=== PATIENT | female | born 1960 | race Caucasian/White ===

== ENCOUNTER 2023-10-17 14:46 | Outpatient (REF) | payer OTHER, SELFPAY ==
--- NOTE | ~2023-10-17 | US_ITS ---
EXAMINATION: US VENOUS WITH DOPPLER UPPER EXTREMITY, RIGHT CLINICAL INFORMATION: Right upper extremity swelling COMPARISON: None available. TECHNIQUE: Ultrasound of the upper extremity is performed using compression sonography and color and pulse Doppler flow with assessment of augmentation of flow. There is also imaging and Doppler assessment of the jugular and subclavian veins. Spectral analysis with color-flow imaging is performed. FINDINGS: Respiratory variation and normal compression are noted throughout the upper extremity including the axillary, basilic, brachial, cephalic and radial and ulnar veins. There is normal flow in the internal jugular and subclavian veins. US/US venous duplex UE RT IMPRESSION: No DVT demonstrated in the right upper extremity
[2023-10-17 15:39] LABS: MANUAL DIFF FLAG NO
[2023-10-17 16:14] LABS: Basophils Absolute Auto 0.1 X10*3/uL (0.0-0.2); Basophils Percent Auto 0.4 % (0-2); Eosinophils Absolute Auto 0.2 X10*3/uL (0.0-0.4); Eosinophils Percent Auto 1.1 % (0-4); Hemoglobin 13.8 g/dl (12.0-16.0); Imm Gran Abs Auto 0.09 X10*3/uL (0.00-0.03); Imm Gran Pct Auto 0.6 % (0.0-0.4); Lymphocytes Absolute Auto 3.3 X10*3/uL (1.2-4.9); Lymphocytes Percent Auto 23.3 % (20-40); Mean Corpuscular HGB Conc 32.1 g/dl (31.0-35.0); Mean Corpuscular Hemoglobin 29.1 pg (27.0-33.0); Mean Corpuscular Volume 90.5 fL (80.0-98.0); Mean Platelet Volume 10.2 fL (9.4-12.3); Monocytes Absolute Auto 0.8 X10*3/uL (0.1-1.2); Monocytes Percent Auto 5.7 % (2-11); Neutrophils Absolute Auto 9.7 x10*3/uL (2.0-8.3); Neutrophils Percent Auto 68.9 % (45-73); Platelet Count 413 X10*3/uL (160-400); Red Blood Count 4.75 X10*6/uL (4.20-5.50); Red Cell Distribution Width 12.5 % (11.0-16.0); White Blood Count 14.1 X10*3/uL (4.8-10.8)
[2023-10-17 16:35] LABS: Alanine Aminotransferase 17 U/L (0-31); Albumin Level 3.7 g/dL (3.5-5.0); Alkaline Phosphatase 132 U/L (39-117); Anion Gap 20 (12-20); Aspartate Amino Transferase 17 U/L (5-31); Bilirubin Total 0.3 mg/dL (0.0-1.0); Blood Urea Nitrogen 26 mg/dL (9-16); Carbon Dioxide 21 mmol/L (22-29); Chloride 102 mmol/L (96-108); Estimated Glomerular Filt Rate 33; Glucose Random 191 mg/dL (60-115); Potassium 4.7 mmol/L (3.3-5.1); Sodium 138 mmol/L (135-145); Total Protein 8.2 g/dL (6.5-8.0)
[2023-10-17 16:59] LABS: D Dimer High Sensitivity 541 NG/ML
== END 2023-10-17 14:47 | disposition home or self-care (01) ==
LOC: HO.US 14:46
PROVIDERS: Visit Provider Internal Medicine Medical Oncology
DX: I82.409 Acute embolism and thrombosis of unspecified deep veins of unspecified lower extremity (principal); I10 Essential (primary) hypertension; E66.01 Morbid (severe) obesity due to excess calories; E11.9 Type 2 diabetes mellitus without complications
CPT/HCPCS: 36415; 80053; 85025; 85379; 93971

== ENCOUNTER 2024-01-12 14:42 | Outpatient (REF) | payer OTHER, SELFPAY | END 2024-01-12 14:43 | disposition home or self-care (01) | LOC: HO.LNP 14:42 | PROVIDERS: Visit Provider Internal Medicine Medical Oncology | DX: L02.91 Cutaneous abscess, unspecified (principal) | CPT/HCPCS: 87070; 87077; 87186; 87205 ==